=== PATIENT | male | born 2000 | race Caucasian/White ===

== ENCOUNTER 2022-09-08 02:13 | Emergency (ER) | payer OTHER, SELFPAY ==
--- NOTE | ~2022-09-08 | XR_ITS ---
EXAMINATION: XR CHEST CLINICAL INFORMATION: Cough. COMPARISON: None TECHNIQUE: Frontal view of the chest was obtained. FINDINGS: Normal appearance of the cardiomediastinal structures. No effusions or pneumothoraces. Normal pattern of pulmonary vasculature. No focal pulmonary consolidation. No peribronchial wall thickening. Convex leftward curvature of the lumbar spine. Mild convex rightward curvature of the lower thoracic spine. XR/XR chest 1V IMPRESSION: *No acute cardiopulmonary abnormalities. Lungs clear. *Thoracolumbar scoliosis.
[2022-09-08 02:16] VITALS: BP 134/73; PULSE 110; RESP 16; TEMP 38.4; O2SAT 95; BMI 21.4
--- OUTSIDE RECORDS SUMMARY | 2022-09-08 03:04 | XMS_ITS | Continuity of Care Document ---
:2000 Author Organization [facility] Care Team Providers Name Role Phone [facility] Unavailable Unavailable Allergies, Adverse Reactions, Alerts Combined list of allergies from Department of Defense and Veterans Affairs facilities. It does not include entries that were removed or entered in error. Substance Category Reaction Severity Reaction Status Date Comments S ource type Reported No Known Drug Drug active MO Allergies allergy allergy 1 [facility] [place] Immunizations Combined list of available immunizations from the Department of Defense and Veterans Affairs facilities. Immunization Series Date Administered Site Reaction Lot CVX Drug St atus Comments Source Given By Number Code Weight Guesser influenza, 1 [id number] SmithKline complet i nfluenza DoD injectable, 2020 ([facility]) ed , quadrivalent, inject abl contains e, preservative quadriv al ent, contains preservat moise varicella [id number] Merck & complet lita icella virus vaccine Ambulat virus vaccine 2020 Company Inc ed 06/28/21 ory Given Pharmac y hepatitis B [id number] GlaxoSmithKli compl et hepatitis B pediatric/adolescent Ambulat pediatric/ado 2020 ne ed 1 ory lescent Given Pharma c y measles/mumps [id number] Merck & complet measles/mumps/rubella virus vaccine Ambulat /rubella 2020 Company Inc ed ory virus vaccine Given Pharmac y measles, 2 [id number] Merck (MSD) complet measles, DoD mumps and 2020 ed mumps and rubella virus rubell a vaccine virus vaccine hepatitis B 1 [id number] 08 SmithKline complet hepatitis DoD vaccine, 2020 (SK) ed B pediatric or vaccine , pediatric/ado pediat arpan lescent or dosage pediatric /adolesce nt dosage varicella 1 [id number] Merck (MSD) complet varicella DoD virus vaccine 2020 ed virus vaccine varicella [id number] Merck & complet lita icella virus vaccine Ambulat virus vaccine 2020 Company Inc ed 05/19/21 ory Given Pharmac y hepatitis B [id number] 08 GlaxoSmithKli compl et hepatitis B pediatric/adolescent Ambulat pediatric/ado 2020 ne ed 1 ory lescent Given Pharma c y measles/mumps [id number] Merck & complet measles/mumps/rubella virus vaccine Ambulat /rubella 2020 Company Inc ed ory virus vaccine Given Pharmac y varicella 1 [id number] 21 Merck (MSD) complet varicella DoD virus vaccine 2020 ed virus vaccine measles, 1 [id number] Merck (MSD) complet measles, DoD mumps and 2020 ed mumps and rubella virus rubell a vaccine virus vaccine hepatitis B 1 [id number] 08 SmithKline complet hepatitis DoD vaccine, 2020 (SKB) ed B pediatric or vaccine , pediatric/ado pediat arpan lescent or dosage pediatric /adolesce nt dosage poliovirus [id number] sanofi complet darek iovirus vaccine, inactivated Ambulat vaccine, 2020 pasteur ed 05/13/21 o ry inactivated Given Ph armac y adenovirus [id number] Teva complet joe ovirus vaccine, live Ambulat vaccine, live 2020 7 Pharmaceutica ed 05/13/21 ory ls Given Pharmac y tetanus, CG 115 GlaxoSmithKli complet tetanus, diphtheria, acellular pertussis Ambulat diphtheria, 2020 ne ed 05/13/21 ory acellular Given Phar mac pertu is y meningococcal [id number] sanofi complet meningococcal A,C,Y,W-135 (MCV4P) Ambulat A,C,Y,W-135 2020 pasteur ed 1 ory (MCV4P) Given Pharma c y meningococcal 1 [id number] 114 Sanofi complet meningoco DoD polysaccharid 2020 Pasteur (PMC) ed ccal e (groups A, polysac ch C, Y and aride W-135) (groups diphtheria A, C, Y toxoid and conjugate W-135) vaccine diphtheri (MCV4P) a toxoid conjugate vaccine (MCV4P) Adenovirus, 1 [id number] Ramos complet Kathie noviru DoD type 4 and 2020 7 Laboratories ed s, type 4 type 7, live, (BRR) and ty pe oral 7, live, oral tetanus 1 CG 115 SmithKline complet teta nus DoD toxoid, 2020 (SKB) ed toxoid, reduced reduced diphtheria diphtheri toxoid, and a toxoid , acellular and pertu is acellular vaccine, pertussis adsorbed vaccine, adsorbed poliovirus 1 [id number] 10 Sanofi complet darek ioviru DoD vaccine, 2020 Pasteur (PMC) ed s inactivated vaccine, inactivat ed hepatitis A 0 () Not hepatit is DoD vaccine, 2020 Given A adult dosage vaccine , adult dosage rubella virus 0 () Not rubel la DoD vaccine 2020 Given virus vaccine COVID Vaccine TRANSC PFIZER complet COVID Vaccine ? Pfizer Ambulat ? Pfizer 2020 IBED ed 01/27/21 ory Given Pharmac y SARS-COV-2 2 Pfizer, Inc complet SARS-COV- DoD (COVID-19) 2020 (PFR) ed 2 vaccine, (COVID-19 mRNA, spike ) protein, LNP, vaccin e, preservative mRNA, free, 30 spike mcg/0.3mL protein, dose LNP, preservat moise free, 30 mcg/0.3mL dose COVID Vaccine PFIZER complet COVID Vaccine ? Pfizer Ambulat ? Pfizer 2020 IBED ed 01/02/21 ory Given Pharmac y SARS-COV-2 1 Pfizer, Inc complet SARS-COV- DoD (COVID-19) 2020 (PFR) ed 2 vaccine, (COVID-19 mRNA, spike ) protein, LNP, vaccin e, preservative mRNA, free, 30 spike mcg/0.3mL protein, dose LNP, preservat moise free, 30 mcg/0.3mL dose Results Combined list of recent chemistry, hematology and other laboratory results from Department of Defense and Veterans Affairs, ranging from 15 months to all on record, depending upon the facility. Order Results Value Reference Date Interpretation Specimen Commen ts Source Name Range Post DoD Serum RECEIVED 05/03 Performed by: SERUM Perform ed [facility] Epidemiology by: Medical t Laboratory Epidemiolog Prieto snow Specimen Service y USAFSAM/PHE Laboratory [facility] [id number] [address] [place] [address] [facility]/PHE [facility] [phone] [place] [phone] Vital Signs Combined list of inpatient and outpatient Vital Signs from Department of Defense and Veterans Affairs, ranging from 12 months to all on record, depending upon the facility. Vital Sign Value Date Comments Source No data available for this section Ambulatory Pharmacy Encounters Combined list of: 1) Encounters from Department of Veterans Affairs facilities going back up to the last 18 months. 2) Encounters from the Department of Defense facilities going back up to 280 months. Location Location Encounter Encounter Reason Attending ADM DC Stat us Disposition Source Details Type Number For Provider Date Date Visit OUTPATIENT [id number] NATALIE, 05/19 Release d w/o MANI Cruz 7 BRDEVINN MIKE Limitations [facility] [place] [address]([facility], [facility]) OUTPATIENT [id number] DIMAS, 05/19 [facility] ed w/o MANI Cruz 7 LAZALE L /2020 Limitations [place] [address]([facility] y [facility] BMT [facility]) OUTPATIENT [id number] Krys BAILEY, 12/12 Released w/o MANI Cruz 6 Entered NATALIE Limitations Anto nio by: Amanda TORRES y VIN Treatme L 13 nt Mar Facilit 2021 [place], [place] [phone](A ------- FN 104 ------- Med ------- Sq-FM) ------- -- Occ Health/ PHAQ Procedures Combined list of: 1) Procedures from Department of Veterans Affairs facilities going back up to the last 18 months, not all [place] non-surgical procedures are included; 2) All procedures from the Department of Defense facilities. Procedure Procedure Type Code Date Perfomer Comments Sourc e No data Ambulatory available for Pharma cy this section Spectacles Spectacles 16142 Karla COCHRAN Services Fitting Services LAZALE L Monofocal Except Fitting For Aphakia Monofocal Except For Aphakia Screening Test Screening Test [address] Karla COCHRAN Of Visual Of Visual LAZALE L Acuity, Acuity, Quantitative, Quantitative, Bilateral Bilateral Threshold Threshold [address] NATALIE [facility] Audiogram (Pure Audiogram (Pure BRILYN MIKE Tone) Tone) PURE TONE [facility] AUDIOMETRY 1 (THRESHOLD); AIR ONLY SCREENING TEST [facility] OF VISUAL 1 ACUITY, QUANTITATIVE, BILATERAL Social History Combined list of available smoking, tobacco, and other social history from Department of Defense andVeterans Affairs facilities. Social History Type Response Date Comment Source This section is an empty social history section. DoD Assessment and Plan Combined list of future care activities from Department of Defense and Veterans Affairs facilities (e.g., assessment and plan notes, appointments, orders, and referrals). Additional future care activities may be listed in the Plan of Care section. Result Assessment and Plan Date Source Assessment and Plan No data available for this 09/08/2022 A [facility]bulatory Pharmacy section Functional Status Combined list of recent functional and cognitive assessments recorded at Department of Defense and Veterans Affairs (VA).VA Functional [place] Measurement (FIM) Scale: 1 = Total Assistance (Subject = 0% +), 2 = Maximal Assistance (Subject = 25% +), 3 = Moderate Assistance (Subject = 50% +), 4 = Mi nimal Assistance (Subject = 75% +), 5 = Supervision, 6 = Modified [place] (Device), 7 = Complete [place] (Timely, Safely). Assessment Source Assessment Type Assessment Assessment Assessmen t Date/Time Skill Score Details No data available for this section
--- NOTE | 2022-09-08 03:38 | ED_ITS ---
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 No exposure to a sick contact that he knows. No recent travel. Related Data Previous Rx's Medication Instructions Recorded oseltamivir 75 mg capsule (Tamiflu) 75 mg PO BID 5 days #10 caps 09/08/22 Allergies Allergy/AdvReac Type Severity Reaction Status Date / Time No Known Allergies Allergy Unverified 06/18/20 17:01 [No Known Allergies*] Review of Systems Review of Systems: All other systems are reviewed and are negative Constitutional: Reports as per HPI and Reports no additional constitutional complaints Eyes: Reports as per HPI and Reports no additional eye complaints Reports system reviewed and no additional complaints, except as documented Cardiovascular: Reports as per HPI and Reports no additional cardiovascular complaints Respiratory: Reports as per HPI and Reports no additional respiratory complaints Gastrointestinal: Reports as per HPI and Reports no additional gastrointestinal complaints Genitourinary: Reports no additional female genitourinary complaints Musculoskeletal: Reports no additional musculoskeletal complaints Skin/Breast: Reports system reviewed and no additional complaints, except as docu Psychiatric: Reports no additional psychiatric complaints Endocrine: Reports no additional endocrine complaints Hematologic/Lymphatic: Reports no additional hematologic/lymphatic complaints Allergic/Immunologic: Reports no additional allergic/immunologic complaints Reports system reviewed and no additional complaints, except as documented and Reports Abnormal speech present [facility] Social History Social History Advance Directives: No Physical Exam ED Vital Signs: Vital Signs - 24 hr 09/08/22 02:16 09/08/22 03:55 Temperature 101.2 F H 97.9 F Pulse Rate 110 H 91 Respiratory Rate 16 16 Blood Pressure 134/73 120/75 Pulse Oximetry 95 97 Oxygen Delivery Method Room Air Room Air BMI result Body Mass Index 21.4 Vital signs have been reviewed as appeared to be correct. Blood pressure normal. Heart rate normal. Respiration rate normal. Temperature elevated. Oxygen saturation normal. Appearance: Alert. Oriented X3. No acute distress. Head: Normal external exam. Normocephalic. Atraumatic. No Castillo signs noted. No raccoon eyes noted Eyes: PERRLA. EOMI. Conjunctiva and sclera normal. Eyelids normal. ENT: TM's Normal. Pharynx normal. Uvula midline. Moist mucous membranes. No trismus noted. No drooling noted. No muffled voice noted. Neck: Normal inspection. Neck supple. FROM. No adenopathy. Thyroid Normal. No meningeal signs. No neck mass noted. CVS: Normal heart rate and rhythm. Heart sound normal. No murmurs noted. Pulses normal throughout. Respiratory: No respiratory distress. Painless inspiration. Breath sounds normal. No wheezes/rales/rhonchi noted. Chest nontender. No accessory muscle usage noted or decreased air movement noted. Abdomen: Soft and nontender. Bowel sounds normal in all 4 quadrants. No distention noted. No organomegaly noted. No visible injury noted. Back: No CVA tenderness. Full range of motion noted. Skin: Skin warm and dry. Normal skin color. Normal skin turgor. No rashes/lesions/lacerations noted. Extremities: No lower extremity edema. Extremities exhibit normal range of motion. Extremities nontender. Neuro: Oriented X 3. Cranial nerve exam: II-XII are grossly intact No motor deficit. No sensory deficit. Reflexes normal. Course Reevaluation(s) Reevaluation #1: Fever for 2 days and body ache patient tested positive for flu A will start the patient on Tamiflu and ibuprofen/Tylenol if needed for pain or fever. Time: 05:38 Medications Administered Discontinued Medications Generic Name Dose Route Start Last Admin Trade Name Freq PRN Reason Stop Dose Admin Ibuprofen 800 mg 09/08/22 03:37 09/08/22 04:28 Ibuprofen 800 Mg Tablet PO 09/08/22 03:38 800 mg ONCE ONE Administration Medical Decision Making Medical Decision Making Differential Diagnoses: Differential diagnosis (Bacterial pharyngitis/viral syndrome/influenza/COVID/RSV.) Lab Attestation: I reviewed the patient's lab results. Discharge Plan Discharge Clinical Impression: Influenza Patient Disposition: Home, Self-Care Instructions: Influenza (ED) Prescriptions: New oseltamivir [Tamiflu] 75 mg capsule 75 mg PO BID 5 Days Qty: 10 0RF Referrals: Lisa Negrete, [Primary Care Provider] - Stand Alone Forms: Work/School Release
[2022-09-08 03:55] VITALS: BP 120/75; PULSE 91; RESP 16; TEMP 36.6; O2SAT 97
[2022-09-08 04:05] LABS: Strep A Nucleic Acid Negative (Negative)
[2022-09-08] MEDS: Ibuprofen 800 MG TABLET PO (04:28)
[2022-09-08 05:10] LABS: Influenza A PCR POSITIVE (Negative); Influenza B PCR NEGATIVE (Negative); Resp Syncy Virus RNA Qual PCR NEGATIVE (Negative); SARS COV2 PCR INHOUSE NEGATIVE (Negative)
== END 2022-09-08 05:43 | disposition home or self-care (01) ==
PROVIDERS: Emergency Provider Emergency Medicine; PCP Pediatrics
DX: J10.1 Influenza due to other identified influenza virus with other respiratory manifestations (principal); R50.9 Fever, unspecified; M79.10 Myalgia, unspecified site; R05.9 Cough, unspecified; Z20.822 Contact with and (suspected) exposure to COVID-19
CPT/HCPCS: 0241U; 36415; 71045; 87651; 99283

== ENCOUNTER 2022-10-14 10:05 | Outpatient (REF) | payer OTHER, SELFPAY ==
[2022-10-14 12:55] LABS: Monotest Negative (Negative)
== END 2022-10-14 10:06 | disposition home or self-care (01) ==
LOC: HO.HMGCLDS 10:05
PROVIDERS: Visit Provider Specialist
DX: J02.9 Acute pharyngitis, unspecified (principal)
CPT/HCPCS: 36415; 86308

== ENCOUNTER 2023-04-20 10:19 | Outpatient (AMB) | payer OTHER, SELFPAY ==
--- NOTE | 2023-04-20 10:21 | MHC.OFFVIS ---
Intake Vital Signs 04/20/23 10:30 Height 5 ft 9 in Weight 152 lb 2 oz BMI 22.5 BP 161/89 H Blood Pressure Location Lt brachial Position Sitting Pulse 69 Intake Visit Reasons: ? hard lump LE, possible Bx Intake Note: Patient is seen in office for evaluation and treatment of a left lower extremity lump, requesting biopsy. Patient c/o: one year ago started with a lump/cyst, area is brighter than skin around it, unsure of increase/decrease, denies redness, discharge, nausea, vomit, diarrhea, constipation Telemarketer Required: No Accompanied by: Self / Same As Patient Allergies No Known Allergies [No Known Allergies*] Allergy (Unverified 04/20/23 10:27) Medication List - Last Reconciled 04/20/23 by Cecil Dobbs MD No Known Home Meds HPI HPI Comments History of Present Illness Details 23-year-old male patient found to have a palpable nodule in the scrotal sac approximately 1 year ago. Since this time the lesion has not changed significantly. He denies any significant pain, redness or discharge. He denies any significant trauma or other inciting event. He was seen by the [facility] and surgical consultation recommended. [facility] Surgical History History of wisdom tooth extraction Family History Maternal Grandmother Pancreatic cancer Social History Alcohol intake: current Patient Tobacco Use Status: Never used Tobacco Review of Systems Const All systems reviewed & are unremarkable except as noted in HPI and below Physical Exam Vital Signs: Last Vital Signs Pulse 69 04/20/23 10:30 BP 161/89 H 04/20/23 10:30 BMI result Body Mass Index 22.5 Const General: cooperative and no acute distress Nutritional Appearance: well nourished Orientation/consciousness: patient oriented x3 Limitations: no limitations HEENT Head: Yes normocephalic and Yes atraumatic Ears: hearing grossly normal bilaterally Resp Effort & Inspection: normal respiratory effort, no audible wheezes, no cough and no respiratory distress Cardio Jugular venous distension: no JVD GI Inspection: Yes normal to inspection Other: 6 mm round cystic lesion on the scrotal sac located to the right of midline below the shaft of the penis. Cyst is mobile within the scrotal skin with no fixation to the underlying scrotal tissue or testicle. Benign inclusion cyst suspected. Male genitals images: 1. Skin Other: Warm, dry, no rash Neuro General: patient oriented x3 Extrem General: Yes no clubbing, cyanosis or edema Assessment & Plan Assessment & Plan (1) Scrotal cyst: Code(s): L72.9 - Follicular cyst of the skin and subcutaneous tissue, unspecified Plan 23-year-old male patient presenting with a 6 mm scrotal cyst which is currently asymptomatic and has not changed significantly in the past year. Options include further evaluation with ultrasound, excisional biopsy, or observation. After discussion of the risks and benefits patient has opted for observation. I recommended returning in approximately 6 months for repeat examination. He will be traveling to [facility] for several months due to a service application and will return following this for re-evaluation. He should call for any new concerns. Coding Level of Care Code New Pt Level 4 (22778) Diagnoses Scrotal cyst L72.9
[2023-04-20 10:30] VITALS: BP 161/89; PULSE 69; BMI 22.5
== END 2023-04-20 10:36 | disposition home or self-care (01) ==
PROVIDERS: PCP Pediatrics; Visit Provider Surgery
DX: L72.9 Follicular cyst of the skin and subcutaneous tissue, unspecified (principal)
CPT/HCPCS: 99203

== ENCOUNTER → 2023-04-20 10:19 | Outpatient (BNVA) | payer OTHER, SELFPAY | PROVIDERS: PCP Pediatrics; Visit Provider Surgery ==

== ENCOUNTER 2023-11-23 12:38 | Outpatient (AMB) | payer OTHER, SELFPAY ==
[2023-11-23 13:04] VITALS: BP 120/80; PULSE 88; BMI 24.3
--- NOTE | 2023-11-23 13:04 | A.OFFVIS_ITS ---
Intake Vital Signs 11/23/23 13:04 Height 5 ft 9 in Weight 164 lb 7.437 oz BMI 24.3 BP 120/80 Blood Pressure Location Rt brachial Position Sitting Pulse 88 Intake Visit Reasons: 7 month follow up, scrotal cyst Intake Note: Patient is seen in office for follow up visit, following scrotal cyst. Pt c/o: dry skin around cyst. Reports no changes in size. Denies pain Medical Chemist Required: No Accompanied by: Self / Same As Patient Allergies No Known Allergies [No Known Allergies*] Allergy (Unverified 11/23/23 13:05) Medication List - Last Reconciled 11/23/23 by Cecil Dobbs MD No Known Home Meds HPI HPI Comments History of Present Illness Details 23-year-old male patient returning for r e-evaluation of a palpable nodule located on the scrotal sac previously evaluated several months ago. In the meantime he was stationed in [facility] a returns today for evaluation for possible excision. He denies any significant change in the size but does note some changes in the skin overlying the cyst. He is requesting excision of this lesion if possible. He denies any bleeding or discharge from the skin. [facility] Surgical History History of wisdom tooth extraction Family History Maternal Grandmother Pancreatic cancer Social History Alcohol intake: current Patient Tobacco Use Status: Never used Tobacco Review of Systems Const All systems reviewed & are unremarkable except as noted in HPI and below Physical Exam Vital Signs: Last Vital Signs Pulse 88 11/23/23 13:04 BP 120/80 11/23/23 13:04 BMI result Body Mass Index 24.3 Const General: cooperative and no acute distress Nutritional Appearance: well nourished Orientation/consciousness: patient oriented x3 Limitations: no limitations HEENT Head: Yes normocephalic and Yes atraumatic Ears: hearing grossly normal bilaterally Resp Effort & Inspection: normal respiratory effort, no audible wheezes, no cough and no respiratory distress Cardio Jugular venous distension: no JVD GI Inspection: Yes normal to inspection Other: 6 mm round cystic lesion on the scrotal sac located to the right of midline below the shaft of the penis. Cyst is mobile within the scrotal skin with no fixation to the underlying scrotal tissue or testicle. Benign inclusion cyst suspected. Skin Other: Warm, dry, no rash Neuro General: patient oriented x3 Extrem General: Yes no clubbing, cyanosis or edema Assessment & Plan Assessment & Plan (1) Scrotal cyst: Code(s): L72.9 - Follicular cyst of the skin and subcutaneous tissue, unspecified Plan 23-year-old male patient presenting with a 6 mm scrotal cyst which is currently asymptomatic and has not changed significantly in the past year. He is requested excision of this lesion under local anesthesia. After discussion of the procedure, risks, and alternatives, he consents to the surgery. Coding Level of Care Code Est Pt Level 3 (70153) Diagnoses Scrotal cyst L72.9
== END 2023-11-23 13:15 | disposition home or self-care (01) ==
PROVIDERS: PCP Pediatrics; Visit Provider Surgery
DX: L72.9 Follicular cyst of the skin and subcutaneous tissue, unspecified (principal)
CPT/HCPCS: 99213

== ENCOUNTER → 2023-11-23 12:38 | Outpatient (BNVA) | payer OTHER, SELFPAY | PROVIDERS: PCP Pediatrics; Visit Provider Surgery ==

== ENCOUNTER → 2023-12-12 13:00 | Outpatient (BNV) | payer OTHER, SELFPAY | PROVIDERS: Visit Provider Surgery | DX: L72.0 Epidermal cyst (principal) | CPT/HCPCS: 11421 ==

== ENCOUNTER 2023-12-13 11:07 | Outpatient (REF) | payer OTHER, SELFPAY ==
[2023-12-12 12:48] VITALS: BMI 24.8
[2023-12-12 12:56] VITALS: BP 165/91; PULSE 83; RESP 16; TEMP 36.8; O2SAT 98
--- NOTE | 2023-12-12 13:38 | W.PM.OPN ---
Operative Note Operative Note Date of Service: 12/12/23 Narrative: Preoperative diagnosis: Right scrotal cyst Postoperative diagnosis: Same Procedure: Excision of right scrotal cyst Surgeon: Cecil Dobbs MD Windows Application Developer: None Anesthesia: Local 1% lidocaine Indications for procedure: 23-year-old male patient presenting with a persistent cyst of the scrotum which is gradually increasing in size. On examination there is a 1 cm scrotal cyst to the right of midline Operative findings: 1 cm scrotal cyst noninfected Specimen: Scrotal cyst Estimated blood loss: 2 mL Complications: None Procedure details: Patient was brought to the minor surgery suite and placed in a supine position. The site of surgery was confirmed by the patient in the right scrotum skin. After assuring informed consent the skin was prepped with Betadine and draped in a sterile fashion. Local anesthesia consisting of lidocaine 1% was infiltrated around the lesion. Elliptical incision oriented transversely was then created with a scalpel. This was carried down into the subcutaneous tissue and around the cyst wall. The specimen was passed off the table and sent to pathology for further examination. Skin was then closed using interrupted 4-0 Polysorb sutures. Dermabond was then applied. The patient tolerated the procedure well. He was discharged to home in stable condition.
== END 2023-12-13 11:08 | disposition home or self-care (01) ==
LOC: HO.MS 11:07
PROVIDERS: Visit Provider Surgery
PROC: (CPT 11422; principal; 2023-12-12 13:00)
DX: L72.0 Epidermal cyst (principal)
CPT/HCPCS: 11422; 88304

== ENCOUNTER 2023-12-22 09:09 | Outpatient (AMB) | payer OTHER, SELFPAY ==
--- NOTE | 2023-12-22 09:12 | A.OFFVIS_ITS ---
Intake Vital Signs 3 12/22/23 09:16 Height 5 ft 9 in Weight 169 lb BMI 25.0 BP 143/81 H Blood Pressure Location Lt brachial Position Sitting Pulse 73 Intake Visit Reasons: S/p exc scrotal cyst Intake Note: Patient is seen in office for post op assessment post excision of right scrotal cyst. Pt c/o: denies redness, swelling or bruising Op:12/12/23 Facility Maintenance Technician Required: No Accompanied by: Self / Same As Patient Allergies No Known Allergies [No Known Allergies*] Allergy (Unverified 12/22/23 09:17) HPI HPI Comments 2 History of Present Illness0 Details Patient returns 1 week following excision of a scrotal cyst. Pathology confirmed an epidermal inclusion cyst. He tolerated the procedure well and denies any ongoing symptoms. [facility] Surgical History Hx of excision of mass (12/12/23) History of wisdom tooth extraction Family History Maternal Grandmother Pancreatic cancer Social History Alcohol intake: current Patient Tobacco Use Status: Never used Tobacco Physical Exam Vital Signs: Last Vital Signs Pulse 73 12/22/23 09:16 BP 143/81 H 12/22/23 09:16 BMI result Body Mass Index 25.0 Other: Scrotal incision is clean, dry, and intact without evidence of bleeding or discharge. No hematoma or seroma is appreciated. Male genitals images: 2 1. Assessment & Plan Assessment & Plan (1) Scrotal cyst: Code(s): L72.9 - Follicular cyst of the skin and subcutaneous tissue, unspecified Plan 23-year-old male patient status post excision of a scrotal cyst 1 week ago. He tolerated the procedure well and her wounds are healing nicely. He should follow up as needed. Coding Level of Care Code Global (70680) Diagnoses Scrotal cyst L72.9
[2023-12-22 09:16] VITALS: BP 143/81; PULSE 73; BMI 25.0
== END 2023-12-22 09:20 | disposition home or self-care (01) ==
PROVIDERS: PCP Pediatrics; Visit Provider Surgery
DX: L72.9 Follicular cyst of the skin and subcutaneous tissue, unspecified (principal)
CPT/HCPCS: 99024

== ENCOUNTER → 2023-12-22 09:09 | Outpatient (BNVA) | payer OTHER, SELFPAY | PROVIDERS: PCP Pediatrics; Visit Provider Surgery ==

== ENCOUNTER 2025-01-22 13:48 | Outpatient (AMB) | payer OTHER, SELFPAY ==
--- NOTE | 2025-01-22 13:51 | MHC.OFFWIV ---
Intake Vital Signs 01/22/25 13:53 Weight 167 lb BP 130/80 Blood Pressure Location Rt brachial Position Sitting Pulse 80 Pulse Source Pulse Oximeter Temp 99.0 F Temp Source Oral Pulse Oximetry (%) 97 Oxygen Delivery Method Room Air Intake Visit Reasons: EP ?Respiratory infection Intake Note: Patient here for chest congestion, nasal congestion, fevers and cough that has been present for almost 1 week. Patient Tobacco Use Status: Never used Tobacco Allergies No Known Allergies [No Known Allergies*] Allergy (Unverified 01/22/25 13:55) Do you need a note to return to daycare/school/sports/work: Yes HPI HPI Comments History of Present Illness Details History - The patient is a 24-year-old male presenting with worsening congestion and cough. - Symptoms began a week ago with initial fever of 100.2?F and conjectured connection to allergies. - Congestion has increased; primarily in nasal and chest areas, accompanied by a metallic-tasting cough producing dark sputum. 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 - Ear pain and sinus pressure were initially present but have since improved. - Courses of Advil and DayQuil provide only marginal relief; not taken today. - Throat symptoms included discomfort after vocal usage. Some left ear pain. - There is no associated fatigue or body aches, headaches or sinus pain; increased sleep noted. Physical Exam General: Cooperative, healthy appearing, comfortable and no acute distress Orientation/consciousness: Patient oriented x3 Limitations: No limitations Head: Normal to inspection Ears: Hearing grossly normal bilaterally, external ears normal, left TM cerumen impaction, right TM normal Nose: Normal external nose present, Normal nares present and No nasal discharge present Face and sinus: Normal facial exam and Yes sinuses nontender Mouth: Normal oral and palatal mucosa present and moist mucous membranes Throat: Yes tonsils normal, Yes uvula midline. Posterior oropharynx erythema Eyes: Appearance normal, both eyes and all related structures Neck: Normal visual inspection Respiratory: Clear to auscultation bilaterally. Normal respiratory effort, able to speak in complete sentences, no respiratory distress, not tachypneic, no tripod positioning and no use of accessory muscles Cardiovascular: Regular rate and rhythm. Normal S1 and S2 Skin: No rashes or lesions noted Neuro: Patient oriented x3 Extremities: Normal to inspection and Yes no clubbing, cyanosis or edema PFSH Surgical History Hx of excision of mass (12/12/23) History of wisdom tooth extraction Family History Maternal Grandmother Pancreatic cancer Social History Alcohol intake: current Patient Tobacco Use Status: Never used Tobacco Review of Systems Const All systems reviewed & are unremarkable except as noted in HPI and below Physical Exam Vital Signs: Last Vital Signs Temp 99.0 F 01/22/25 13:53 Pulse 80 01/22/25 13:53 BP 130/80 01/22/25 13:53 Pulse Ox 97 01/22/25 13:53 Oxygen Delivery Method Room Air 01/22/25 13:53 Office Procedures Cerumen Removal From which ear canal was the cerumen removed: left Removal: irrigation and cerumen loop/spoon Notes: patient tolerated procedure well, no complications and ear canal clear [id number] Irrigation/Lavage Assessment & Plan Assessment & Plan (1) URI, acute: Code(s): J06.9 - Acute upper respiratory infection, unspecified Plan: VSS, pt well appearing and PE remarkable for cerumen impaction in left ear. The patient is likely experiencing a viral upper respiratory infection, and I recommend supportive care. Given the reported impacted cerumen in the left ear, flushing will be performed to rule out infection. Continuation of xbqo-kax-akjttwe medications such as Advil and DayQuil is suggested for symptom management. Emphasis is placed on maintaining adequate rest and hydration due to the viral nature of the infection, avoiding antibiotics unless ear infection is confirmed after the flush. If symptoms persist or worsen, the patient should return to urgent care for further evaluation. Patient was informed and verbally consented to the use of an ambient scribe for clinic note documentation during this visit (2) Otitis externa of left ear: Code(s): H60.92 - Unspecified otitis externa, left ear Qualifiers: Otitis externa type: other infective Chronicity: acute Qualified Code(s): H60.392 - Other infective otitis externa, left ear Plan: Once cerumen was cleared, evidence of erythema and edema in EAC, will treat as OE. RX sent to pharmacy. (3) Impacted cerumen of left ear: Code(s): H61.22 - Impacted cerumen, left ear Plan: Cleared by provider with loop and irrigation by Saira ROACH. Orders: Orders AMB Cerumen Removal Today H61.22 - Impacted cerumen, left ear Medications: New lhawguma-inbqycirv-OH 3.5-10,000-1 mg/mL-unit/mL-% 4 drps otic (ear) left Q8H 7 days 10 mL 0RF Coding Level of Care Code New Pt Level 4 (70177) Diagnoses URI, acute J06.9 Other infective acute otitis externa of left ear H60.392 Otitis externa type: other infective Chronicity: acute Impacted cerumen of left ear H61.22 CPT Codes Office Procedure - CPT: 64494-Noz Irrigation/Lavage ([id number])
[2025-01-22 13:53] VITALS: BP 130/80; PULSE 80; TEMP 37.2; O2SAT 97
--- OUTSIDE RECORDS SUMMARY | 2025-01-22 16:32 | XMS_ITS | Clinical Summary ---
Author Organization [facility] Address [address] [place] [id number] Phone Care Team Providers Care Facility Manager Name Role Phone Unavailable Primary Care Provider Unavailabl e Allergies No known active allergies Medications clindamycin 300 MG capsuleIndicati ons:Tonsillar abscess Take 2 capsules now then 1 capsule 3 times daily til gone 20 capsule 10/07/2022 Active Active Problems Problem Noted Date Diagnosed Date Adolescent idiopathic scoliosis of thoracolumbar region 12/11/2019 Overview (12/11/2019): Seen by Fam OLEA needed Acne vulgaris 07/19/2017 Overview (12/11/2019): Does not like benzaclin/retinA topicals due to feel of them and staining Advised try Differin gel Uses OTC medicated wash in shower Assessment & Plan (12/11/2019 11:03 AM EDT): Try differin Assessment & Plan (06/27/2018 1:51 PM EDT): Add benzaclin and cerrato oxyl wash; see me in 6w if not better; consider doxy course Assessment & Plan (07/19/2017 3:03 PM EDT): Needs RF retin A Mild intermittent asthma without complication Overview (06/19/2020): Stopped QVAR 80 in Spring 2017. Has prn proair. 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 ACT 23- excellent! Assessment & Plan (07/19/2017 3:03 PM EDT): Not consistently using QVAR; needs to use it 1p twice a day; mom will call me in 6w for update as ACT was 20 and he is unsure whether the QVAR made a difference with his cough Immunizations Immunization Administration Dates Next Due COVID-19 Pfizer, estela-sucros e, 12+ years 11/17/2021 DTaP 5 12/22/2006, 4,2002,08/12,2002 H1N1 09/16/2009 HPV, Quadrivalent 08/12/2014,03/10/2014,02/08/20 14 Hep A, ped/adol 10/14/2016,04/11/2015 Hep B, ped/adol 02/17/2003,2002,2002 Hib (PRP-T) 07/11/2003, 3,2002,06/12 IPV 12/22/2006, 3,2002,06/12 Influenza Split 07/23/2012,06/28/2011,08/25/2010 Influenza, injectable, MDCK, preservative free, quadrivalent 07/21/2016 Influenza, injectable, quadr ivalent, preservative free 06/15/2020,07/19/2019,06/27/2018,07/19,07/14/2015,07/16/2014 Influenza, injectable, trivalent 08/14/2009,12/0 01/2008,12/07/2007 Influenza, injectable, triva lent, preservative free 07/25/2013 MMR 04/11/2003 MMRV 12/22/2006 Meningococcal B Trumenba 06/15/2020,12/11/2019 Meningococcal Conj (Menactra) MCV4P 06/27/2018,0 02/07/2014 Pneumococcal Conjugate 07/11/2003,2002,2002,06/12 Tdap 02/07/2014 Unknown Vaccine 04/23/2004 Varicella 04/11/2003 Family History Relation Name Status Comments Father Alive Father: Hyperli pidemia Maternal Grandfather Materna l grandfather: Color Blind Mother Briana Mother: Alive a nd well, Mitral valve prolapse, Atrial fibrillation Other 1 Close relative: Cancer, breast, brain tumor Other 2 Family history of Cancer, pancreas, Family history of Mitral valve prolapse, Family history of Cancer, ovarian, Family history of Cancer, colon Sister Alive Sister: Alive a nd Well Social History Tobacco Use Types Packs/Day Years Used Date Smoking Tobacco: Never Comments:Never smoker Alcohol Use Standard Drinks/Week Comments No 0 (1 standard drink = 0.6 oz pur e alcohol) Hunger/Food Answer Date Recorded In the last 12 months, did y ou or your family ever eat less than you felt you should because there wasn't enough money for food? No 12/11/2019 Stable Housing Answer Date Recorded Are you worried that in the next 2 months you may not have stable housing? No 12/11/2019 Transportation Concerns Answer Date Rec orded In the last 12 months, have you or your family ever had to go without healthcare because you didn't have a way to get there? No 12/11/2019 Hazards in Home Answer Date Recorded Think about the place you li ve. Do you have problems with any of the following? Pests (mice or roaches), mold, no/not working smoke detectors, water leaks, no window guards. No 2019 Financing Utilities Answer Date Recorde d In the last 12 months, has t he electric, gas, oil, or water company threatened to shut off your services in your home? No 12/11/2019 Safety at Home Answer Date Recorded Are you or your family worried about feeling saf e in your home? No 12/11/2019 Outside Support Answer Date Recorded Do you feel that you need mo re support from other people or programs to help you care for yourself or your family? No 12/11/2019 Understanding Health Concerns Answer Da te Recorded Do you need help understandi ng your or your child's healthcare needs (diagnosis, medications, plan, etc.)? No 12/11/2019 Financing Health Concerns Answer Date R ecorded In the last 12 months, was t here a time when your child needed to see a doctor or get medications or supplies but could not because of cost? No 12/11/2019 Missing School or Work Answer Date Saravanan rded Did you or your child miss s chool or work because of a health problem that could have been avoided? No 12/11/2019 Sex and Gender Information Value Date Recorded Sex Assigned at Not on file Legal Sex Male 4:57 PM EDT Gender Identity Not on file Sexual Orientation Not on file Last Filed Vital Signs Vital Sign Reading Time Taken Comments Blood Pressure 110/80 01/26/2021 2:20 PM EDT Pulse 76 01/26/2021 2:20 PM EDT Temperature 36.7 ??C (98 ??F) 10/11/2022 4:48 PM EST Respiratory Rate 18 02/19/2020 2:38 PM EDT Oxygen Saturation 99% 01/26/2021 2:20 PM EDT Inhaled Oxygen Concentration - - Weight 65.8 kg (145 lb) 10/11/2022 4:48 PM EST Height 175.3 cm (5' 9 ) 01/26/2021 2:20 PM EDT Body Mass Index 21.41 01/26/2021 2:20 PM EDT Plan of Treatment Health Maintenance Due Date Last Done Comments DTaP,Tdap,and Td Vaccines (7 - Td or Tdap) 02/08/2024 02/07/2014, 12/22/2006, 10/17/2003, Additional history exists Influenza Vaccines (#1) 2024 07/27/20, 06/15/2020, 07/19/2019, Additional history exists COVID-19 Vaccine (2023-2 5 season) 2024 11/17/2021, 01/27/2021, 01/02/2021 Hepatitis B Vaccines Completed 02/17/2003, 2002, 2002 HIB Vaccines Completed 07/11/2003, 10/04, 2002, Additional history exists Pneumococcal Vaccine Completed 07/11/2003, 2002, 2002, Additional history exists IPV Vaccines Completed 12/22/2006, 01/30, 2002, Additional history exists MMR Vaccines Completed 12/22/2006, 04/11/2003 Varicella Vaccines Completed 12/22/2006, 04/11/2003 HPV Vaccines Completed 08/12/2014, 06/2014, 02/07/2014 Hepatitis A Vaccines Completed 10/14/2016, 04/11/20 15 Meningococcal Vaccine Completed 06/27/2018, 014 Men B Vaccine Completed 06/15/2020, 12/11/2019 Insurance [facility] Member Subscriber Plan / Payer (Ef fective 2019-Present) Name:Sridhar Alvarez Relation to Subscriber:Child Name:BRIANA ALVAREZ Date of :1972 Address: [address] [place] [id number] Payer ID:Not on file Type:PPO Address: [facility] [address] [place] [address]
--- OUTSIDE RECORDS SUMMARY | 2025-01-22 16:32 | XMS_ITS | Continuity of Care Document ---
Author Name [facility] Organization [facility] Care Team Providers Care Search Engine Optimization Consultant Name Role Phone [facility] Unavailable Unavailable Allergies, Adverse Reactions, Alerts Combined list of allergies from Department of Defense and Veterans Affairs facilities. It does not include entries that were removed or entered in error. Substance Category Reaction Severity Reaction type Status Date Reported Comments Source No Known Allergies Drug allergy (disorder) active 07/08/2021 [facility] Immunizations Combined list of available immunizations from the Department of Defense and Veterans Affairs facilities. Immunization Series Date Given Administered By Site Reaction Lot Number CVX Code Drug Algebra Tutor Status Comments Source influenza virus vaccine, inactivated 2023 JAVIER Corona ramirez, left (delt oid) [id number] [employer], A [employer] complet ed influenza virus vaccine, inactivat ed 08/04/24 Given 8203R-1 04 MDG [place] Encephalitis IM 2022 GILDARDOFRIZZA RI Cj ramirez, left (delt oid) [id number] 134 Valneva complet ed [place] Encephali tis IM 06/14/23 Given 8203R-1 04 MDG influenza, injectable, quadrivalent, contains preservative 1 2020 [id number] 158 SmithKline (SKB) complet ed influenza , injectabl e, quadrival ent, contains preservat moise [facility] varicella virus vaccine 2020 [id number] Merck & Company Inc complet ed varicella virus vaccine 06/28/21 Given Ambulat ory Pharmac y hepatitis B pediatric/ado lescent 2020 [id number] 08 GlaxoSmithKli ne complet ed hepatitis B pediatric /adolesce nt 06/28/21 Given Ambulat ory Pharmac y measles/mumps /rubella virus vaccine 2020 [id number] 03 Merck & Company Inc complet ed measles/m umps/rube lla virus vaccine 06/28/21 Given Ambulat ory Pharmac y measles, mumps and rubella virus vaccine 2 2020 [id number] 03 Merck (MSD) complet ed measles, mumps and rubella virus vaccine DoD hepatitis B vaccine, pediatric or pediatric/ado lescent dosage 1 2020 [id number] 08 [facility] ([facility]) complet ed hepatitis B vaccine, pediatric or pediatric /adolesce nt dosage DoD varicella virus vaccine 1 2020 [id number] 21 Merck (MSD) complet ed varicella virus vaccine DoD varicella virus vaccine 2020 [id number] 21 Merck & Company Inc complet ed varicella virus vaccine 05/19/21 Given Ambulat ory Pharmac y hepatitis B pediatric/ado lescent 2020 [id number] 08 GlaxoSmithKli ne complet ed hepatitis B pediatric /adolesce nt 05/19/21 Given Ambulat ory Pharmac y measles/mumps /rubella virus vaccine 2020 [id number] 03 Merck & Company Inc complet ed measles/m umps/rube lla virus vaccine 05/19/21 Given Ambulat ory Pharmac y measles, mumps and rubella virus vaccine 1 2020 [id number] 03 Merck (MSD) complet ed measles, mumps and rubella virus vaccine DoD hepatitis B vaccine, pediatric or pediatric/ado lescent dosage 1 2020 [id number] 08 [facility] ([facility]) complet ed hepatitis B vaccine, pediatric or pediatric /adolesce nt dosage DoD varicella virus vaccine 1 2020 [id number] 21 Merck (MSD) complet ed varicella virus vaccine DoD poliovirus vaccine, inactivated 2020 [id number] 10 sanofi pasteur complet ed polioviru s vaccine, inactivat ed 05/13/21 Given Ambulat ory Pharmac y adenovirus vaccine, live 2020 [id number] 143 Teva Pharmaceutica ls complet ed adenoviru s vaccine, live 05/13/21 Given Ambulat ory Pharmac y tetanus, diphtheria, acellular pertu is 2020 224CG 115 GlaxoSmithKli ne complet ed tetanus, diphtheri a, acellular pertussis 05/13/21 Given Ambulat ory Pharmac y meningococcal A,C,Y,W-135 (MCV4P) 2020 [id number] 114 sanofi pasteur complet ed meningoco ccal A,C,Y,W-1 35 (MCV4P) 05/13/21 Given Ambulat ory Pharmac y poliovirus vaccine, inactivated 1 2020 [id number] 10 Sanofi Pasteur ([facility]) complet ed polioviru s vaccine, inactivat ed DoD meningococcal polysaccharid e (groups A, C, Y and W-135) diphtheria toxoid conjugate vaccine (MCV4P) 1 2020 [id number] 114 Sanofi Pasteur ([facility]) complet ed meningoco ccal polysacch aride (groups A, C, Y and W-135) diphtheri a toxoid conjugate vaccine (MCV4P) DoD tetanus toxoid, reduced diphtheria toxoid, and acellular pertu is vaccine, adsorbed 1 2020 [id number] 115 Buyou (SKB) complet ed tetanus toxoid, reduced diphtheri a toxoid, and acellular pertussis vaccine, adsorbed DoD Adenovirus, type 4 and type 7, live, oral 1 2020 [id number] [place] [address] ([facility]) complet ed Adenoviru s, type 4 and type 7, live, oral DoD rubella virus vaccine 0 2020 06 () Not Given rubella virus vaccine DoD hepatitis A vaccine, adult dosage 0 2020 52 () Not Given hepatitis A vaccine, adult dosage DoD COVID Vaccine Pfizer 2020 TRANSCR IBED 208 PFIZER complet ed COVID Vaccine Pfizer 01/27/21 Given Ambulat ory Pharmac y SARS-COV-2 (COVID-19) vaccine, mRNA, spike protein, LNP, preservative free, 30 mcg/0.3mL dose 2 2020 208 Pfizer, [place] (PFR) complet ed SARS-COV- 2 (COVID-19 ) vaccine, mRNA, spike protein, LNP, preservat moise free, 30 mcg/0.3mL dose DoD COVID Vaccine Pfizer 2020 TRANSCR IBED 208 PFIZER complet ed COVID Vaccine [facility] 01/02/21 Given Ambulat ory Pharmac y SARS-COV-2 (COVID-19) vaccine, mRNA, spike protein, LNP, preservative free, 30 mcg/0.3mL dose 1 2020 208 Pfizer, Inc (PFR) complet ed SARS-COV- 2 (COVID-19 ) vaccine, mRNA, spike protein, LNP, preservat moise free, 30 mcg/0.3mL dose DoD Results Combined list of recent chemistry, hematology and other laboratory results from Department of Defense and Veterans Affairs, ranging from 15 months to all on record, depending upon the facility. Order Name Results Value Reference Range Date Interpretation Specimen Comments Source Infectiou s Disease HIV-1/O/2 Non-Reac tive 1 (12/17/23 1:55 PM) 12/16 N Interpretiv e Data: INTERPRETAT ION: This method is a screening procedure for the detection of HIV p24 Antigen and Antibodies to HIV-1, including Group O, and/or HIV-2. NON-REACTIV E: HIV-1 antigen and HIV-1 / HIV-2 antibodies were not detected. No laboratory evidence of HIV infection. A negative test result does not exclude the possibility of exposure to or infection with HIV. HIV antibodies and/or p24 antigen may be undetectabl e in some stages of the infection and in some clinical conditions. If acute HIV infection is suspected, consider submitting another specimen to a reference laboratory for HIV-1 RNA. SCREEN REACTIVE - CONFIRMATIO N TO FOLLOW: Possible presence of HIV-1antibo dies, HIV-2 antibodies and/or HIV-1 p24 antigen. Specimen will reflex to the confirmatio n testing that fulfills the Center for Disease Control and Prevention' s HIV diagnostic algorithm. Refer to [facility] Lab Guide for additional information : [email or web address] x Testing performed by [employer] [facility]. [employer] EPILAB Miscellan eous Sendouts Repository Sample Received (12/17/23 1:55 PM) 12/16 N [employer] Vital Signs Combined list of inpatient and outpatient Vital Signs from Department of Defense and Veterans Affairs, ranging from 12 months to all on record, depending upon the facility. Vital Sign Value Date Comments Source Systolic Blood Pressure 138 mm[Hg] 12/17/2023 11:13:00 8203R-104 MDG Diastolic Blood Pressure 91 mm[Hg] 12/17/2023 11:13:00 8203R-104 MDG Peripheral Pulse Rate 90 bpm 12/17/2023 11:13:00 8203R-104 MDG BP Site Right arm 12/17/2023 11:13:00 8203R -104 MDG Mean Arterial Pressure, Calc 107 mm[Hg] 12/17/2023 11:13:0 0 8203R-104 MDG Encounters Combined list of: 1) Encounters from Department of Veterans Affairs facilities going backup to the last 18 months, not all VA inpatient encounters are included; 2) Encounters from the Department of Defense facilities going backup to 280 months. Location Location Details Encounter Type Encounter Number Reason For Visit Attending Provider ADM Date DC Date Status Disposition [place] [address](Hea ring Conservat ion, BMT) OUTPATIENT [id number] EDUARDO ESTRADA 05/19 Released w/o Limitations [facility] [place] [address](H earing Conserv ation, BMT) [place] [address](Opt ometry Clinic BMT [facility]) OUTPATIENT [id number] MIKE COCHRAN 05/19 Released w/o Limitations [facility] [place] [address](O ptometr y Clinic BMT [facility]) [place] [address](AFN G 104 Med Sq-FM) OUTPATIENT [id number] Notes Entered by: VIN TORRES 12 Dec 2021 1150 ------- ------- ------- ------- -- [facility]/ STEPHANI BEAR 12/12 Released w/o Limitations [facility] [place] [address](A FNG 104 Med Sq-FM) 8203R-104 MDG Mass Vaccine [id number] 08/04 8203R-1 04 MDG 8203R-104 MDG Between Visit [id number] 08/26 Discharge Disposition: Home or Self Care 8203R-1 04 MDG 8203R-104 MDG Between Visit [id number] 11/30 Discharge Disposition: Home or Self Care 8203R-1 04 MDG 8203R-104 MDG Care Not Rendered [id number] 01/02 Discharge Disposition: Home or Self Care 8203R-1 04 MDG Procedures Combined list of: 1) Procedures from Department of Veterans Affairs facilities going back up to thelast 18 months, not all [place] non-surgical procedures are included; 2) All procedures from the Department of Defense facilities. Procedure Procedure Type Code Date Perfomer Comments Sourc e No data available for this section Ambulatory Pharmacy Spectacles Services Fitting Monofocals (Not For Aphakia) [facility] Fitting Monofocals (Not For Aphakia) [id number] MIKE COCHRAN [facility] Screening Test Of Visual Acuity, Quantitative, Bilateral Screening Test Of Visual Acuity, Quantitative, Bilateral [id number] MIKE COCHRAN [facility] Threshold Audiogram (Pure Tone) Threshold Audiogram (Pure Tone) [id number] EDUARDO ESTRADA [facility] PURE TONE AUDIOMETRY (THRESHOLD); AIR ONLY 05/19/2021 [facility] SCREENING TEST OF VISUAL ACUITY, QUANTITATIVE, BILATERAL 05/19/2021 [facility] Social History Combined list of available smoking, tobacco, and other social history from Department of Defense and Veterans Affairs facilities. Social History Type Response Date Comment Sourc e This section is an empty social history section. DoD Assessment and Plan Combined list of future care activities from Department of Defense and Veterans Affairs facilities (e.g., assessment and plan notes, appointments, orders, and referrals). Additional future care activities may be listed in the Plan of Care section. Result Assessment and Plan Date Source Assessment and Plan No data available for this section 01/22/2025 Ambulatory Pharmacy Functional Status Combined list of recent functional and cognitive assessments recorded at Department of Defense and [facility] Affairs ([place] Functional [place] Measurement (FIM) Scale: 1 = Total Assistance (Subject = 0% +), 2 = Maximal Assistance (Subject = 25% +), 3 = Moderate Assistance (Subject = 50% +), 4 = Minimal Assistance (Subject = 75% +), 5 = Supervision, 6 = Modified [place] (Device), 7 = Complete [place] (Timely, Safely). Assessment Date/Time Source Assessment Type Assessment Skill Assessment Score Assessment Details No data available for this section
--- OUTSIDE RECORDS SUMMARY | 2025-01-22 16:32 | XMS_ITS | Encounter Summary ---
Author Organization [facility] Address [address] [place] [address] Phone Care Team Providers Care Immigration Lawyer Name Role Phone Lisa Negrete DO Primary Care Provider [phone] Encounter Details Date Type Department Care Team ([facility] st Contact Info) Description 01/18/2017 Documentation [facility] [address] [place] [address] Family Medicine, Physician [facility] [place] [id number] Social History Tobacco Use Types Packs/Day Years Used Date Smoking Tobacco: Never Comments:Never smoker Sex and Gender Information Value Date Recorded Sex Assigned at Not on file Legal Sex Male 4:57 PM EDT Gender Identity Not on file Sexual Orientation Not on file documented as of this encounter Plan of Treatment Not on file documented as of this encounter Visit Diagnoses Not on filedocumented in this encounter Care Teams Immigration Lawyer Relationship Specialty Start Date End Date Lisa Negrete DO [address] [place] [address] PCP - General 05/12/17 05/08/23 documented as of this encounter
--- OUTSIDE RECORDS SUMMARY | 2025-01-22 16:32 | XMS_ITS | Encounter Summary ---
Author Organization [facility] Address [address] [place] [address] Phone Care Team Providers Care Ceramic Saw Tender Name Role Phone Lisa Negrete DO Primary Care Provider [phone] Encounter Details Date Type Department Care Team ([facility] st Contact Info) Description 01/25/2017 Documentation [facility] Family Medicine [address] [place] [address] Family Medicine, Physician [facility] [place] [id number] Social History Tobacco Use Types Packs/Day Years [...] on filedocumented in this encounter Care Teams Ceramic Saw Tender Relationship Specialty Start Date End Date Lisa Negrete DO [address] [place] [address] PCP - General 05/12/17 05/08/23 documented as of this encounter
--- OUTSIDE RECORDS SUMMARY | 2025-01-22 16:32 | XMS_ITS | Encounter Summary ---
Author Organization [facility] Address [address] [place] [address] Phone Care Team Providers Care Head Counselor Name Role Phone Lisa Negrete DO Primary Care Provider [phone] Encounter Details Date Type Department Care Team ([facility] st Contact Info) Description 04/06/2016 Documentation [facility] Family Medicine [address] [place] [address] Family Medicine, Physician [facility] [place] [phone] Social History Tobacco Use Types Packs/Day Years Used Date Smoking Tobacco: Never Assessed Sex and Gender Information Value Date Recorded Sex Assigned at Not on file Legal Sex Male 4:57 PM EDT Gender Identity Not on file Sexual Orientation Not on file documented as of this encounter Plan of Treatment Not on file documented as of this encounter Visit Diagnoses Not on filedocumented in this encounter Care Teams Head Counselor Relationship Specialty Start Date End Date Lisa Negrete DO [address] [place] [address] PCP - General 05/12/17 05/08/23 documented as of this encounter
--- OUTSIDE RECORDS SUMMARY | 2025-01-22 16:32 | XMS_ITS | Encounter Summary ---
Author Organization [facility] Address [address] [place] [address] Phone Care Team Providers Care Chiropractor Assistant Name Role Phone Lisa Negrete DO Primary Care Provider [phone] Encounter Details Date Type Department Care Team ([facility] st Contact Info) Description 05/18/2017 Conversion Encounter [facility] [address] [place] [address] Social History Tobacco Use Types Packs/Day Years [...] on filedocumented in this encounter Care Teams Chiropractor Assistant Relationship Specialty Start Date End Date Lisa Negrete DO [address] [place] [address] PCP - General 05/12/17 05/08/23 documented as of this encounter
== END 2025-01-22 15:39 | disposition home or self-care (01) ==
PROVIDERS: PCP Pediatrics; Visit Provider Physician Assistant
DX: J06.9 Acute upper respiratory infection, unspecified (principal); H60.392 Other infective otitis externa, left ear; H61.22 Impacted cerumen, left ear

== ENCOUNTER → 2025-01-22 13:48 | Outpatient (BNVA) | payer OTHER, SELFPAY | PROVIDERS: PCP Pediatrics; Visit Provider Physician Assistant | DX: J06.9 Acute upper respiratory infection, unspecified (principal); H61.22 Impacted cerumen, left ear | CPT/HCPCS: 69210 ==